=== PATIENT | male | born 1950 | race Caucasian/White ===

== ENCOUNTER 2017-07-01 05:17 | Day surgery (SDC) | payer OTHER ==
[~2017-07-01] VITALS: Ht 182.9 cm; Wt 92.5 kg
--- NOTE | ~2017-07-01 | O ---
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 PROCEDURE: 1. Left upper lid retraction repair. 2. Full thickness skin graft to left upper lid x 2. SURGEON: Sreekanth Edmond MD MOLDER PUNCH: None. ALLERGIES: None. ANESTHESIA: General. COMPLICATIONS: None. INDICATIONS FOR SURGERY: This 67-year-old gentleman has incurred previous trauma to the left side of his face incurring severe lacerations of the upper and lower lid completely disinserting the lids. He has previously undergone correction of the left lower lid ectropion with a full thickness skin graft from right supraclavicular area. Unfortunately, while the lower lid globe apposition is excellent, his upper lid is everted completely and he has severe lid retraction, leading to progressive corneal decompensation. He presents today for correction of the ectropion with surgery for the lid retraction to allow the lid to close. Informed consent was obtained to include but not limited to the potential risk for loss of vision, bleeding, infection, failure to improve the problem, the potential need for further surgery or treatment. DESCRIPTION OF PROCEDURE: The patient was taken to the operating room where general anesthesia was administered. The left upper lid, the left lateral canthus, the left frontal area and the left supraclavicular area were all anesthetized with Xylocaine with epinephrine mixed with Marcaine and Wydase. The patient was subsequently prepped and draped in the usual sterile fashion. A left upper lid crease incision was then outlined. The lid crease superiorly [address] [address] OPERATIVE REPORT Name: CRISTINE GOSS Room #: DEP [facility] M.R.#: [id number] Admission: 07/01/17 Attend Phys: Sreekanth Edmond MD Discharge: 07/01/17 Date of : 50 Report #: [id number] all the way up into the brow which demonstrated how severe the lid retraction and anterior lamellar deficiency were. The incision was then made with a Jong scissor and the dissection carried down into the preaponeurotic fat. The preaponeurotic fat was scarred to the anterior lamella and was teased free to allow to be retracted back into the orbit. The incision extended from the posterior limb of the medial canthal tendon all the way across the upper lid to the lateral canthus. This tissue was recessed and allowed to retract. The left lateral canthus was then clamped with a Gavin clamp. A sharp superior canthotomy and cantholysis was then performed. The anterior lamellar deficiency was then created removing portion of the redundant lid margin and the tarsal plate shortened horizontally. The tarsal plate was then reattached to the internal portion of the lateral orbital tubercle with 5-0 Prolene suture. That incision was then closed with a 6-0 plain gut suture. This brought the lid into good apposition with the globe, but it left a large anterior lamellar defect. The defect was measured at 6 cm in width x 4 cm in height. A full thickness skin graft was then outlined in the left supraclavicular area of the deficient tissue. The incision was then made with a 15 blade and a full thickness skin graft harvested utilizing thin section techniques. It was then placed on a moistened sponge on the back table. The donor bed was closed with multiple interrupted buried 5-0 Vicryl sutures deep and then 5-0 Prolene sutures superficially. It was then dressed with Mastisol and an OpSite dressing. The full thickness skin graft was then defatted. It was then split into 2 sections to allow 1 full thickness skin graft to be placed in the pretarsal anterior lamella and allowed the lid to open and then a second one in the skin superior to the upper lid crease to allow a point of reflection. The full thickness skin graft was then secured into the anterior lamella with 7-0 Vicryl sutures with cardinal bites and then 6-0 plain gut sutures. It was attached superiorly at the superior border of the tarsal plate. The superior portion of the skin graft was secured to the superior portion of the prior skin graft allowing a hinged upper lid crease. A 6-0 plain gut sutures were used for the final closure. The wound was then dressed with erythromycin ophthalmic ointment followed by several layers of Telfa pad which were held in place with 2 eye pads, silk tape, and Mastisol. The patient was subsequently transported to the recovery area having tolerated the procedures well with no anesthetic or operative complications being noted. <ELECTRONICALLY SIGNED> By: Sreekanth Edmond MD 07/08/17 0620 [id number] Sreekanth Edmond MD /nt
[~2017-07-01 05:17] MED LIST: ACETAMINOP160 MG/5 M PO; ALBUTEROL2.5 MG/31 INH; ALOE VERA TOP; ARTIFICIAL TEAR15 M2 OPHTHALMIC; ASPIR 8181 MG PO; BACITRACIN3.5 GM OPHTHALMIC; BUMETANIDE 1 MG1 M1 PO; CALCIUM CA1250 MG/5 PO; DESITIN113 GM TOP; DOCUSATE SODIU100 M1 PO; FEROSUL220 MG/5 M PO; FLOMAX0.4 MG PO; LEVETIRACE100 MG/1 M PO; LORAZEPAM 1 MG T1 M1 SUBLING; MILK OF MA2400 MG/10 PO; NYAMYC15 GM TOP; OMEPRAZOLE 20 M20 MG PO; REFRESH LACRI-3.5 GM OPHTHALMIC; SYNTHROID150 MCG PO; TAB-A-VITE WIT1 EACH PO; TRIPLE ANTIBIO1 EAC1 TOP; VIMPAT200 MG PO; VITAMIN C250 MG PO; VITAMIN D3400 UNI1 PO; ZOFRAN ODT4 MG PO; [UNRECOGNIZED DRUG - OTHER] OPHTHALMIC; [UNRECOGNIZED DRUG - REMARK] TOP
[2017-07-01 14:02] VITALS: BP 135/86
[2017-07-01 14:44] LABS: CALCIUM 9.1 mg/dL (8.5-10.1); POTASSIUM 4.7 mmol/L (3.5-5.1)
== END 2017-07-01 18:22 | disposition home or self-care (01) ==
LOC: TBA 05:17 → OR 05:17
PROVIDERS: Ophthalmology
DX: H02.005 Unspecified entropion of left lower eyelid (principal); H16.292 Other keratoconjunctivitis, left eye; F32.9 Major depressive disorder, single episode, unspecified; F41.9 Anxiety disorder, unspecified; G40.909 Epilepsy, unspecified, not intractable, without status epilepticus; R56.9 Unspecified convulsions; F03.90 Unspecified dementia, unspecified severity, without behavioral disturbance, psychotic disturbance, mood disturbance, and anxiety; R00.1 Bradycardia, unspecified; Z95.0 Presence of cardiac pacemaker; I11.0 Hypertensive heart disease with heart failure; I50.9 Heart failure, unspecified; K21.9 Gastro-esophageal reflux disease without esophagitis; E03.9 Hypothyroidism, unspecified; D64.9 Anemia, unspecified; I63.9 Cerebral infarction, unspecified; I48.91 Unspecified atrial fibrillation; Z93.3 Colostomy status
CPT/HCPCS: 50010; 50101; 50386; 50398; 51636; 56527; 56528; 56531; 62110; 62900; 64037; 70005